=== PATIENT | female | born 1995 | race Caucasian/White ===

== ENCOUNTER 2018-02-17 10:17 | Emergency (ER) | payer OTHER ==
[~2018-02-17] VITALS: Ht 167.6 cm; Wt 60.4 kg
[2018-02-17 10:35] VITALS: Ht 167.6 cm; Wt 60.4 kg
[2018-02-17 12:15] VITALS: BP 121/67
== END 2018-02-17 12:15 | disposition home or self-care (01) ==
LOC: ED 10:17
DX: H10.9 Unspecified conjunctivitis (principal)